=== PATIENT | male | born 1990 | race African-American/Black ===

== ENCOUNTER 2017-08-10 22:17 | Emergency (ER) | payer BC ==
[~2017-08-10] VITALS: Ht 170.2 cm; Wt 107.0 kg
[2017-08-10 23:10] LABS: HEMATOCRIT 42.7 % (38.0-50.0); HEMOGLOBIN 15.1 G/DL (12.5-16.6); MCH 29.3 PG (29.0-34.0); MCHC 35.4 G/DL (30.0-36.0); MCV 82.8 FL (86-99); PLATELET COUNT 276 K/uL (156-360); RBC DIS.WIDTH-CV 12.2 % (11.8-14.6); RBC DIS.WIDTH-SD 37.3 % (39-53); RED BLOOD COUNT 5.16 M/uL (4.00-5.50); WHITE BLOOD COUNT 9.3 K/uL (4.1-10.2)
[2017-08-10 23:19] LABS: ALBUMIN 4.8 g/dL (3.2-4.8); CHLORIDE 101 mEq/L (99-109); POTASSIUM 4.1 mEq/L (3.7-5.4); SODIUM 141 mEq/L (136-147)
[2017-08-10 23:21] LABS: GLUCOSE 94 mg/dL (70-99); TOTAL PROTEIN 8.1 g/dL (6.4-8.3)
[2017-08-10 23:23] LABS: TOTAL BILIRUBIN 0.4 mg/dL (0.0-1.0)
[2017-08-10 23:25] LABS: ALKALINE PHOSPHATASE 89 IU/L (3-129); CREATININE 1.2 mg/dL (0.6-1.3)
[2017-08-10 23:26] LABS: GFR ESTIMATE (CALCULATED) > 59 mL/min/ (58.99-99999); UREA NITROGEN (BUN) 23 mg/dL (9-23)
[2017-08-10 23:27] LABS: AST (GOT) 36 IU/L (2-34)
[2017-08-10 23:28] LABS: ALT (GPT) 68 IU/L (3-49)
[2017-08-11 00:58] LABS: APPEARANCE CLEAR ((CLEAR)); BILIRUBIN NEGATIVE; BLOOD NEGATIVE; COLOR YELLOW ((YELLOW)); GLUCOSE (STRIP) NEGATIVE; KETONES NEGATIVE; LEUKOCYTES NEGATIVE; NITRITE NEGATIVE; PROTEIN (STRIP) NEGATIVE; SPECIFIC GRAVITY 1.024 (1.000-1.030); UCUL ADDED? NO
[2017-08-11] MEDS ORDERED: PREDNISONE20 MG PO (03:19)
[2017-08-11] MEDS ORDERED: IMITREX20 MG NS (03:19)
[2017-08-11 04:20] VITALS: BP 126/84
== END 2017-08-11 04:20 | disposition home or self-care (01) ==
LOC: EME 22:17
DX: G44.009 Cluster headache syndrome, unspecified, not intractable (principal); G43.909 Migraine, unspecified, not intractable, without status migrainosus; I10 Essential (primary) hypertension; F17.200 Nicotine dependence, unspecified, uncomplicated
CPT/HCPCS: 70450; 80053; 81003; 85027; 99281; 99284; J3030; J7512